=== PATIENT | female | born 1960 ===

== ENCOUNTER 2024-12-25 07:00 | Day surgery (SDC) | payer OTHER ==
[2024-12-19 09:50] VITALS: BP 148/86
[2024-12-19 11:02] LABS: URINE APPEARANCE Clear; URINE BILIRRUBIN Negative (NEGATIVE); URINE BLOOD Negative; URINE COLOR Yellow; URINE GLUCOSE Negative (NEGATIVE); URINE KETONE Negative (NEGATIVE); URINE LEUKOCYTE Negative; URINE NITRATE Negative; URINE PROTEIN Negative (NEGATIVE); URINE UROBILINOGEN 0.2 E.U./dl
[2024-12-19 11:06] LABS: URINE WBC 7.8 uL (0.0-23.2)
[2024-12-19 11:07] LABS: URINE BACTERIA 3.5 uL (0.0-1933); URINE CAST 0.00 uL (0.0-1.40); URINE EPITHELIAL CELLS 0.7 uL (0.0-38.8); URINE RBC 1.9 uL (0.0-20.8)
[2024-12-19 11:15] LABS: BASO % 0.4 % (0.1-1.2); EOS # 0.15 (0.04-0.54); EOS % 2.1 % (0.7-7.0); LYMPH # 2.04 (1.18-3.74); LYMPH % 28.9 % (19.3-53.1); MEAN PLATELET VOLUME 9.70 fl (9.4-12.4); MONO # 0.57 (0.24-0.82); MONO % 8.1 % (4.7-12.5); NEUT # 4.24 (1.56-6.13); NEUT % 59.9 % (34.0-71.1); RED CELL DISTRIBUTION WIDTH 14.6 % (11.6-14.4)
[2024-12-19 11:28] LABS: INR 1.02
[2024-12-19 11:34] LABS: ALT/SGPT 43.0 U/L (12-78); AST/SGOT 26.0 U/L (15-37); BILIRUBIN TOTAL 0.97 mg/dL (0.3-1.2); BUN CREA RATIO 18.0 (7.0-25.0); CREATININE SERUM 0.72 mg/dL (0.55-1.02); GFR 81.55; GLOBULINA 3.7 G/DL (2.4-3.5); GLUCOSE FASTING 148.0 mg/dL (65-100); OSMOLALITY SERUM 286.0 MOSM/KG (275-295)
[~2024-12-25] VITALS: Ht 160 cm; Wt 81.6 kg
[~2024-12-25 07:00] MED LIST: ATORVASTATIN CA10 MG PO; METFORMIN HCL1000 M2 PO; VASOTEC10 MG PO
[2024-12-25] MEDS ORDERED: DEXAMETHASONE SODIUM PHOSPHATE 4 MG/ML VIAL IV ONE (10:00)
[2024-12-25] MEDS ORDERED: CEFAZOLIN SODIUM 1,000 MG VIAL IV ONE (10:30)
[2024-12-25] MEDS ORDERED: hydrALAZINE HCL 20 MG VIAL IV STA (13:12)
[2024-12-25] MEDS ORDERED: INSULIN LISPRO 1,000 UNIT/10 ML UNITS SUBCUTANEO PRN (13:15)
[2024-12-25] MEDS ORDERED: hydrALAZINE HCL 20 MG VIAL IV PRN (13:15)
[2024-12-25] MEDS ORDERED: DEXTROSE 50 % IN WATER 0.5 G/ML VIAL IV PRN (13:15)
== END 2024-12-25 15:20 | disposition home or self-care (01) ==
LOC: O/R 07:00 → SURH 07:00 → CIR.AMB 07:00 → SURH 08:45 → EDSTATUS 08:45 → SURH 14:30 → CIR.AMB 15:20 → O/R 15:20
PROVIDERS: ATTEND Surgery
DX: E04.2 Nontoxic multinodular goiter (principal)